=== PATIENT | female | born 2000 | race Caucasian/White ===

== ENCOUNTER 2024-03-04 11:15 | Inpatient (IN) | payer OTHER ==
[2024-03-04 12:11] LABS: HEMATOCRIT 38.9 % (35.0-50.0); HEMOGLOBIN 12.8 g/dL (12.0-18.0); MCH 29.2 (27-36); MCHC 32.9 g/dl (30-36); MCV 88.7 fl (81-99); RBC 4.39 M/ul (4.3-5.7); RDW 13.6 (10.5-15.0)
[2024-03-04 12:21] LABS: PROTEIN, RANDOM URINE <6 mg/dL (NOT ESTABLISHED)
[2024-03-04 12:30] LABS: ALBUMIN 2.7 g/dL (3.4-5.0); ALBUMIN/GLOBULIN RATIO 0.69 (1.1-2.4); ANION GAP 15.9 (7-21); BILIRUBIN, TOTAL 0.3 ng/dL (0.2-1.0); BUN/CREATININE RATIO 10.71 (6.0-28.6); CALCIUM 9.2 mg/dL (8.5-10.1); CREATININE, SERUM 0.56 mg/dL (0.55-1.02); POTASSIUM 3.9 mmol/L (3.5-5.1); PROTEIN, TOTAL 6.6 g/dL (6.4-8.2)
[2024-03-04] MEDS ORDERED: OXYTOCIN/DEXTROSE 5% 20 UNITS/100 ML BAG IV SCH (13:00)
[2024-03-04] MEDS ORDERED: hydrALAZINE HCL 20 MG/ML VIAL IV PRN (13:00)
[2024-03-04] MEDS ORDERED: LABETALOL HCL 100 MG/20 ML MDV IV PRN ×3 (13:00)
[2024-03-04] MEDS ORDERED: MAGNESIUM HYDROXIDE/AL HYDROX 30 ML CUP PO PRN ×2 (13:00→23:15)
[2024-03-04] MEDS ORDERED: miSOPROStoL 25 MCG TAB PV SCH (13:00)
[2024-03-04] MEDS ORDERED: CALCIUM CARBONATE 500 MG CHEW PO PRN ×2 (13:00→23:15)
[2024-03-04 13:30] LABS: AMPHETAMINES, URINE NEGATIVE (NEGATIVE); BARBITURATES, URINE NEGATIVE (NEGATIVE); BENZODIAZEPINE, URINE NEGATIVE (NEGATIVE); BUPRENORPHINE, URINE NEGATIVE (NEGATIVE); CANNABINOID, URINE NEGATIVE (NEGATIVE); COCAINE, URINE NEGATIVE (NEGATIVE); ECSTASY, URINE NEGATIVE (NEGATIVE); FENTANYL, URINE NEGATIVE (NEGATIVE); METHADONE, URINE NEGATIVE (NEGATIVE); OPIATES, URINE NEGATIVE (NEGATIVE); OXYCODONE, URINE NEGATIVE (NEGATIVE); PHENCYCLIDINE, URINE NEGATIVE (NEGATIVE)
[2024-03-04 14:01] VITALS: BP 127/90
[2024-03-04] MEDS ORDERED: ondansetron HCL 4 MG/2 ML VIAL IV PRN (15:15)
--- NOTE | 2024-03-04 17:50 | PR ---
[facility] [address], [place] [address] Signed Progress Notes IP Datetime Report Generated by CPN: 03/04/2024 17:50 PROGRESS NOTES: [id number] Impression: Normal Progression of Labor; Reassuring Heart Rate Procedures: Sterile Vag Exam Other Procedures: Cook Cath Removal Plan: Continue Present Management; Anesthesia Consult VITAL SIGNS: [id number] Vital Signs: Reviewed; Within Normal Limits EXAM: [id number] Dilatation: 5.0 Effacement: 80 Station: -3 Contractions: q 1 min MEMBRANES: [id number] Comments: Pt seen and examined. Doing well. Uncomfortable w/ contractions and requesting epidural. Cook cath noted to be expelled from cervix and removed. Plan AROM after comfortable w/ epidural FETUS A: [id number] FHR Baseline: 140 Variability: Moderate 6-25bpm Accelerations: 15X15 Decelerations: None FHR Category: Category I Presentation: Vertex Comments on Fetus A: No evidence of metabolic acidosis FETUS B: [id number] Signing Physician: Augustina Vieyra DO Copies: ~ *Electronically Signed* 03/04/24 1900 AUGUSTINA VIEYRA (YORDY) DO PATIENT NAME: NADIA ESTRELLA PROGRESS NOTE DATE OF : 99 PHYSICIAN: AUGUSTINA VIEYRA) DO RPT #: [id number] REPORT IS CONFIDENTIAL AND NOT TO BE RELEASED WITHOUT AUTHORIZATION
[2024-03-04] MEDS ORDERED: LIDOCAINE HCL 2% 5 ML SDV ONE (18:20)
[2024-03-04] MEDS ORDERED: BUPIVACAINE HCL 0.25% 10 ML SDV INJ ONE ×2 (18:20)
[2024-03-04] MEDS ORDERED: ROPIVACAINE 0.2% 200 ML BAG ONE (18:20)
--- NOTE | 2024-03-04 19:01 | PR ---
[facility] [address] [place], [place] [address] Signed Progress Notes IP Datetime Report Generated by CPN: 03/04/2024 19:00 PROGRESS NOTES: [id number] Impression: Normal Progression of Labor; Reassuring Heart Rate Procedures: Artificial ROM Other Procedures: Cook Cath Removal Plan: Continue Present Management; Anticipate Vaginal Delivery Informed Consent Obtain: Vaginal Delivery VITAL SIGNS: [id number] Vital Signs: Reviewed; Within Normal Limits EXAM: [id number] Dilatation: 6.0 Effacement: 90 Station: -3 Contractions: q 1-2 min MEMBRANES: [id number] Comments: Pt seen and examined. Comfortable w/ epidural. Discussed AROM. Vertex well applied and bulging membranes noted. AROM performed easily for large amount of clear fluid. Mother and baby tolerated well. Anticipate normal course of labor FETUS A: [id number] FHR Baseline: 140 Variability: Moderate 6-25bpm Accelerations: 15X15 Decelerations: None FHR Category: Category I Presentation: Vertex Comments on Fetus A: No evidence of metabolic acidosis FETUS B: [id number] Signing Physician: Augustina Vieyra DO Copies: ~ *Electronically Signed* 03/04/241899 AUGUSTINA VIEYRA (YORDY) DO PATIENT NAME: NADIA ESTRELLA PROGRESS NOTE DATE OF : 99 PHYSICIAN: AUGUSTINA VIEYRA (JD) DO RPT #: [id number] REPORT IS CONFIDENTIAL AND NOT TO BE RELEASED WITHOUT AUTHORIZATION
[2024-03-04] MEDS ORDERED: LACTATED RINGER'S 2,000 ML IV ONE (19:15)
[2024-03-04] MEDS ORDERED: ROPIVACAINE 0.2% 200 ML BAG EPIDURAL SCH ×2 (19:15)
[2024-03-04] MEDS ORDERED: LACTATED RINGER'S 500 ML IV PRN (19:15)
[2024-03-04] MEDS ORDERED: ePHEDrine sulfate 5 MG/ML SYRINGE IV PRN (19:15)
[2024-03-04] MEDS ORDERED: LIDOCAINE 2% W/ EPI 1:200,000 20 ML SDV ONE (20:28)
--- NOTE | 2024-03-04 22:07 | PR ---
[facility] [address] [facility] [place] [address] Signed Progress Notes IP Datetime Report Generated by CPN: 03/04/2024 22:07 PROGRESS NOTES: [id number] Impression: Normal Progression of Labor; Reassuring Heart Rate Procedures: Sterile Vag Exam Other Procedures: Cook Cath Removal Plan: Continue Present Management; Anticipate Vaginal Delivery Informed Consent Obtain: Vaginal Delivery VITAL SIGNS: [id number] Vital Signs: Reviewed; Within Normal Limits EXAM: [id number] Dilatation: 10.0 Effacement: 95 Station: 1 Contractions: q 1-2 min MEMBRANES: [id number] Comments: Pt seen and examined. Doing well. Pushing well w/ contractions and now +2 station. FHT ressuring. Anticipate soon. FETUS A: [id number] FHR Baseline: 140 Variability: Moderate 6-25bpm Accelerations: 15X15 Decelerations: Variable FHR Category: Category II Presentation: Vertex Comments on Fetus A: No evidence of metabolic acidosis FETUS B: [id number] Signing Physician: Augustina Vieyra DO Copies: ~ *Electronically Signed* 03/04/24 9398 AUGUSTINA VIEYRA (YORDY) DO PATIENT NAME: NADIA ESTRELLA PROGRESS NOTE DATE OF : 99 PHYSICIAN: AUGUSTINA VIEYRA (JD) DO RPT #: [id number] REPORT IS CONFIDENTIAL AND NOT TO BE RELEASED WITHOUT AUTHORIZATION
[2024-03-04] MEDS ORDERED: OXYTOCIN/0.9 % SODIUM CHLORIDE 500 ML IV SCH (23:15)
[2024-03-04] MEDS ORDERED: ACETAMINOPHEN 325 MG TAB PO PRN (23:15)
[2024-03-04] MEDS ORDERED: BENZOCAINE 60 ML AEROSOL TOP PRN (23:15)
[2024-03-04] MEDS ORDERED: IBUPROFEN 600 MG TAB PO PRN (23:15)
[2024-03-04] MEDS ORDERED: WITCH HAZEL/GLYCERIN 1 EA PAD TOP PRN (23:15)
[2024-03-04] MEDS ORDERED: HYDROCODONE/ACETA 5/325 TAB PO PRN (23:15)
[2024-03-04] MEDS ORDERED: HYDROCORTISONE ACETATE 25 MG SUPP PR PRN (23:15)
[2024-03-04] MEDS ORDERED: OXYCODONE/APAP 5/325 TAB PO PRN (23:15)
[2024-03-04] MEDS ORDERED: MAGNESIUM HYDROXIDE 30 ML UDC PO PRN (23:15)
[2024-03-04] MEDS ORDERED: TRANEXAMIC ACID IN NACL,ISO-OS 1,000 MG/100 ML PIGGYBACK IV ONE (23:45)
[2024-03-04] MEDS ORDERED: TRANEXAMIC ACID IN NACL,ISO-OS 100 ML IV ONE (23:45)
[2024-03-04] MEDS ORDERED: miSOPROStoL 200 MCG TAB PO ONE (23:45)
[2024-03-05 06:51] LABS: HEMATOCRIT 33.2 % (35.0-50.0); HEMOGLOBIN 11.2 g/dL (12.0-18.0); MCH 29.9 (27-36); MCHC 33.8 g/dl (30-36); MCV 88.3 fl (81-99); PLATELET COUNT 215 K/uL (140-440); RBC 3.76 M/ul (4.3-5.7); RDW 13.4 (10.5-15.0)
[2024-03-05 07:49] LABS: ABO O; ANTIBODY SCREEN POSITIVE; FETAL HEMOGLOBIN SCREEN NEGATIVE; RH NEGATIVE
[2024-03-05 07:51] LABS: RHIG STATUS NOT A CANDIDATE
[2024-03-05] MEDS ORDERED: FERROUS SULFATE 325 MG TAB PO SCH (08:00)
[2024-03-05 08:04] LABS: ANTIBODY IDENTIFICATION ANTI-D
[2024-03-05] MEDS ORDERED: SENNOSIDES/DOCUSATE 1 EA TAB PO SCH (09:00)
--- NOTE | 2024-03-05 09:18 | PR ---
[facility] [address] [facility] [place], [place] [address] Signed PP Progress Notes Datetime Report Generated by CPN: 03/05/2024 09:18 SUBJECTIVE: [id number] Pain: Within Normal Limits Nausea/Vomiting: Denies Flatus: Yes Vital Signs: [id number] Vital Signs: Reviewed; Within Normal Limits Cardiovascular: Normal Respiratory: Normal Abdomen/Uterus: Normal Lochia: Normal Vulva/Perineum: Not Done Breasts: Normal CVA Tenderness: Normal Extremities: Normal Incision: Not Applicable Progress: Normal IMPRESSION/PLAN/PROCEDURES: [id number] Impression: Normal Progression; Difficulties Plan: Continue Present Management Procedures: None Progress Notes: Patient doing well. H/H reviewed WNL. Struggling a bit with latch. Will work with nursing today. Pain and bleeding WNL. Signing Physician: Elizabeth Frederick MD Copies: ~ *Electronically Signed* 03/05/24917 ELIZABETH FREDERICK MD PATIENT NAME: NADIA ESTRELLA PROGRESS NOTE DATE OF : 99 PHYSICIAN: ELIZABETH FREDERICK MD RPT #: [id number] REPORT IS CONFIDENTIAL AND NOT TO BE RELEASED WITHOUT AUTHORIZATION
--- NOTE | 2024-03-06 08:52 | PR ---
[facility] [address] [facility] [place], [place] [address] Signed PP Progress Notes Datetime Report Generated by CPN: 03/06/2024 08:51 SUBJECTIVE: [id number] Pain: Within Normal Limits Nausea/Vomiting: Denies Flatus: Yes Vital Signs: [id number] Vital Signs: Reviewed; Within Normal Limits EXAM: Ongoing Cardiovascular: Normal Respiratory: Normal Abdomen/Uterus: Normal Lochia: Normal Vulva/Perineum: Not Done Breasts: Normal CVA Tenderness: Normal Extremities: Normal Incision: Not Applicable Progress: Normal IMPRESSION/PLAN/PROCEDURES: [id number] Impression: Normal Progression Plan: Continue Present Management; Discharge Procedures: None Progress Notes: Doing well, nursing. Lochia WNL. Pain well controlled. No concerns. Will D/C home Signing Physician: Elizabeth Frederick MD Copies: ~ *Electronically Signed* 03/06/24 0851 ELIZABETH FREDERICK MD PATIENT NAME: NADIA ESTRELLA PROGRESS NOTE DATE OF : 99 PHYSICIAN: ELIZABETH FREDERICK MD RPT #: [id number] REPORT IS CONFIDENTIAL AND NOT TO BE RELEASED WITHOUT AUTHORIZATION
== END 2024-03-06 15:55 | disposition home or self-care (01) | DRG 807 ==
LOC: FBCO 11:15 → FBC 12:40
PROVIDERS: ADMIT Obstetrics & Gynecology; ATTEND Obstetrics & Gynecology
PROC: 10E0XZZ Delivery of Products of Conception, External Approach (ICD-10-PCS; principal; 2024-03-04)
PROC: 0KQM0ZZ Repair Perineum Muscle, Open Approach (ICD-10-PCS; 2024-03-04)
PROC: 10907ZC Drainage of Amniotic Fluid, Therapeutic from Products of Conception, Via Natural or Artificial Opening (ICD-10-PCS; 2024-03-04)
DX: O13.4 Gestational [pregnancy-induced] hypertension without significant proteinuria, complicating childbirth (principal); Z37.0 Single live birth; Z3A.38 38 weeks gestation of pregnancy; O70.1 Second degree perineal laceration during delivery
CPT/HCPCS: 36415; 59025; 80053; 80307; 82565; 82570; 83030; 83615; 84156; 84550; 85027; 85060; 86850; 86870; 86900; 86901; A9270; J2001; J2405; J2590; J2790; J2795